=== PATIENT | female | born 1995 | race Caucasian/White ===

== ENCOUNTER 2020-03-17 12:01 | Emergency (ER) | payer OTHER ==
[~2020-03-17] VITALS: Ht 157.5 cm; Wt 47.2 kg
[2020-03-17] MEDS ORDERED: IBUPROFEN 600600 M1 PO (12:55)
[2020-03-17] MEDS ORDERED: KEFLEX500 M1 PO (12:55)
[2020-03-17 14:00] VITALS: BP 122/68
== END 2020-03-17 14:00 | disposition home or self-care (01) ==
LOC: M.ERS 12:01
DX: S61.232A Puncture wound without foreign body of right middle finger without damage to nail, initial encounter (principal); Z88.0 Allergy status to penicillin; W22.8XXA Striking against or struck by other objects, initial encounter; Y93.89 Activity, other specified; Y92.89 Other specified places as the place of occurrence of the external cause; Y99.8 Other external cause status